=== PATIENT | male | born 1965 | race Caucasian/White ===

== ENCOUNTER 2020-03-23 21:37 | Observation (INO) ==
[2020-03-23] MEDS ORDERED: ONDANSETRON 4 MG/2 ML VIAL IV PRN ×2 (23:21→23:23)
[2020-03-23] MEDS ORDERED: ACETAMINOPHEN 325 MG TABLET PO PRN (23:21)
[2020-03-23] MEDS ORDERED: HYDROmorphone 2 MG/1 ML VIAL IV PRN (23:23)
[2020-03-24 05:53] LABS: Basophils % 0.2 % (0.0-0.8); Eosinophils # 0.2 10*3/uL (0.0-0.87); Eosinophils % 2.2 % (0.00-10.9); Hematocrit 40.7 VOL% (42.0-52.0); Hemoglobin 14.1 GM/DL (14.0-18.0); Immature Granulocytes % 0.4 %; Immature Granulocytes Absolute 0.04 #; Lymphocytes # 2.1 10*3/uL (1.4-4.0); Lymphocytes % 19.2 % (21.2-54.2); Mean Corpuscular HGB Conc 34.6 GM/DL (32-36); Mean Platelet Volume 9.8 FL (9.6-12.0); Monocytes % 8.3 % (1.7-12.7); Neutrophils % 69.7 % (38.7-73.9); Platelet Count 214 T/CUMM (130-400); Red Blood Count 4.52 MC/CUMM (3.8-5.5); Red Cell Distribution Width 11.9 % (9.3-17.3); White Blood Count 10.8 T/CUMM (4-12)
[2020-03-24 06:09] LABS: Albumin 3.6 G/DL (3.4-5.0); Calcium 9.1 MG/DL (8.5-10.1); Osmolality,Calculated 278.7 MOS/KG (273-304); Total Protein 6.6 G/DL (6.4-8.3)
[2020-03-24] MEDS: SODIUM CHLORIDE 0.45% 1,000 ML IV SCH ×3 (07:20→11:43)
[2020-03-24] MEDS ORDERED: PANTOPRAZOLE 40 MG TABLET PO SCH (09:00)
[2020-03-24] MEDS ORDERED: INSULIN REGULAR 100 UNIT/ML SUBCUT ONE (16:21)
[2020-03-24 16:43] VITALS: BP 155/83
== END 2020-03-24 17:00 | disposition home or self-care (01) ==
LOC: EDBD → EDUNIT# → N.ED 21:37 → INTOOBSV 23:21 → N.EDINP 23:21 → N.3E 03-24
PROVIDERS: ADMIT Student in an Organized Health Care Education/Training Program; ATTEND Student in an Organized Health Care Education/Training Program